=== PATIENT | male | born 1930 | race Two or more races ===

== ENCOUNTER 2021-06-22 19:26 | Emergency (ER) | payer OTHER ==
[~2021-06-22] VITALS: Ht 170.2 cm; Wt 65.8 kg
--- NOTE | 2021-06-22 19:32 | NUR ---
[id number]. PRODUCTIVE COUGH - NOTED @ 88% 0N RA.
--- NOTE | 2021-06-22 19:40 | NUR ---
PT ON R/A AT 91% WITH COUGH. PUT ON O2 2LPM VIA N/C SATTING AT 99-100%. LARRY HEARD TO BILATERAL LUNG SOUNDS
--- NOTE | 2021-06-22 20:40 | NUR ---
UPDATED STEPHANIE ON PT'S CONDITION
--- NOTE | 2021-06-22 20:48 | NUR ---
MD DR. ALLAN AT BEDSIDE
--- NOTE | 2021-06-22 20:55 | NUR ---
CALLED [facility] [place]. MEMBER ID NO: [id number]
--- NOTE | 2021-06-22 20:59 | NUR ---
DR ALLAN ON THE PHONE W/ DR CABRAL FROM [facility]
[2021-06-22 21:10] LABS: BASOPHILS % (AUTO) 0.3 % (0.0-2.0); EOSINOPHILS % (AUTO) 2.5 % (0.0-6.0); HEMATOCRIT 33 % (39-51); HEMOGLOBIN 11.1 g/dL (13.5-17.5); LYMPHOCYTES # (AUTO) 0.6 K/uL (0.8-4.8); LYMPHOCYTES % (AUTO) 8.2 % (20.0-44.0); MEAN CORPUSCULAR HGB CONC 34 g/dl (31.0-36.0); MEAN CORPUSCULAR VOLUME 98 fL (80-96); MONOCYTES # (AUTO) 0.7 K/uL (0.1-1.30); MONOCYTES % (AUTO) 9.3 % (2.0-12.0); NEUTROPHILS # (AUTO) 5.6 K/uL (1.8-8.9); NEUTROPHILS % (AUTO) 79.7 % (43.0-81.0); PLATELET COUNT (AUTO) 177 K/uL (150-450); RED BLOOD CELL COUNT(AUTO) 3.39 MIL/uL (4.5-6.0)
[2021-06-22 21:19] LABS: CALCIUM, SERUM 8.2 mg/dL (8.5-10.1); CARBON DIOXIDE 35 mmol/L (21-32); CHLORIDE 104 mmol/L (98-107); CREATININE 1.1 mg/dL (0.6-1.3); GLUCOSE 91 mg/dL (74-106); POTASSIUM 3.9 mmol/L (3.5-5.1); SODIUM SERUM 141 mmol/L (136-145); UREA NITROGEN, BLOOD 31 mg/dL (7-18)
--- NOTE | 2021-06-22 21:27 | NUR ---
COVID SWAB COLLECTED AND SENT TO LAB
--- NOTE | 2021-06-22 21:27 | NUR ---
RAC #20G S/L; PATENT AND INTACT
--- NOTE | 2021-06-22 21:50 | NUR ---
, STEPHANIE [phone]
[2021-06-22] MEDS ORDERED: ALBUTEROL FS 2.5 MG/0.5 ML VIAL.NEB NEB ONE (22:30)
[2021-06-22] MEDS ORDERED: IV NS 0.9% 250 ML IV ONE (22:36)
[2021-06-22] MEDS ORDERED: IOHEXOL-350 100 ML VIAL IV ONE (22:36)
[2021-06-22] MEDS ORDERED: CT SWABBABLE VALVE TRANS SET 1 EA INFUS.SET MC ONE (22:36)
--- NOTE | 2021-06-22 22:59 | NUR ---
left for CT
--- NOTE | 2021-06-22 23:16 | NUR ---
PT RETURNED TO ER ROOM 6
[2021-06-22] MEDS ORDERED: ALBUTEROL FS 2.5 MG/0.5 ML VIAL.NEB ONE (23:22)
--- NOTE | 2021-06-22 23:58 | NUR ---
[facility]ED [facility] AND UPDATED [facility] RE CTA RESULT
--- NOTE | 2021-06-23 01:14 | NUR ---
CALLED [facility]. JETHRO QUEEN AWAITING FOR BED ASSIGNMENT AND ETA
--- NOTE | 2021-06-23 01:50 | NUR ---
PT GOT ACCEPTED AT [facility] BY DR FORRESTER, RM [id number], # FOR REPORT: [phone] ALS ETA BY [facility]: [id number]
[2021-06-23 02:16] VITALS: BP 125/71
--- NOTE | 2021-06-23 02:18 | NUR ---
REPORT GIVEN TO MANN AT [facility]
--- NOTE | 2021-06-23 02:25 | NUR ---
[facility] AT BED SIDE TO WIRE INSERTER THE PT
--- NOTE | 2021-06-23 02:40 | NUR ---
PT WAS TRANSFERRED TO [facility] UNDER ACLS. ALL BELONGINGS PICKED UP
== END 2021-06-23 02:40 | disposition short-term general hospital (02) ==
LOC: ER 19:28
DX: R05.9 Cough, unspecified (principal); R09.02 Hypoxemia; J98.11 Atelectasis; Z20.822 Contact with and (suspected) exposure to COVID-19; Z90.49 Acquired absence of other specified parts of digestive tract; I45.10 Unspecified right bundle-branch block; R94.31 Abnormal electrocardiogram [ECG] [EKG]; Z86.73 Personal history of transient ischemic attack (TIA), and cerebral infarction without residual deficits; I10 Essential (primary) hypertension
CPT/HCPCS: 36415; 71045; 71275; 80048; 84484; 85025; 85378; 87426; 93005; 94640; 99291; C9803; J7050; Q9967